=== PATIENT | female | born 2000 | race Caucasian/White ===

== ENCOUNTER 2018-05-30 21:59 | Emergency (ER) | payer OTHER ==
[~2018-05-30] VITALS: Ht 170.2 cm; Wt 84.1 kg
[2018-05-30 23:41] VITALS: BP 114/69
--- NOTE | 2018-05-31 02:52 | REP ---
Clinical: Right knee Trauma. Technique: AP, lateral, bilateral oblique and sunrise views. Findings: The osseous structures and joint spaces are intact and normal. There is no evidence for acute fracture or dislocation. No joint effusion is appreciated. Surrounding soft tissues are unremarkable. No subcutaneous emphysema or radiodense foreign body. Impression: Normal right knee examination. No acute fracture or dislocation. Electronically Signed by Tonio Woods MD 05/31/2018 02:43 A
== END 2018-05-30 23:42 | disposition home or self-care (01) ==
LOC: M ED 21:59
DX: M23.91 Unspecified internal derangement of right knee (principal)

== ENCOUNTER → 2018-06-22 | Outpatient (CLI) | payer OTHER ==
--- NOTE | 2018-06-22 13:40 | REP ---
MRI RIGHT KNEE: TECHNIQUE: Axial proton density fat saturation, sagittal proton density T2 STIR, water excitation, coronal proton density, proton density fat saturation. There appears to be a tear centrally of the posterior horn of the lateral meniscus. No definite tear is seen in the medial meniscus. The anterior cruciate ligament is torn from its femoral attachment. It is completely torn from its femoral attachment. The posterior cruciate ligament is intact. There is mild increased signal on T2-weighted images surrounding the medial collateral ligament consistent with a mild sprain or partial tear. The lateral collateral ligament is intact. The extensor mechanism is intact. No focal cartilaginous defect is seen. There is a moderate degree of bone bruising of the lateral femoral condyle tibial plateau with a more mild degree of bone bruising of the medial tibial plateau and femoral condyle. Moderate joint effusion. Suprapatellar plica is noted. The medial and lateral patellar retinacula are intact. IMPRESSION: Tear of the posterior horn of the lateral meniscus. There is a complete tear of the anterior cruciate ligament at its femoral attachment. There is a mild sprain or partial tear of the medial collateral ligament. Bone bruising distal femur and proximal tibia. Moderate to large joint effusion. Suprapatellar plica. Electronically Signed by Rad Valderrama MD 06/22/2018 03:16 P
== END ==
LOC: M RAD 10:23
PROVIDERS: ATTEND Orthopaedic Surgery Sports Medicine
DX: S83.411A Sprain of medial collateral ligament of right knee, initial encounter (principal); S83.281A Other tear of lateral meniscus, current injury, right knee, initial encounter; M25.461 Effusion, right knee; M67.51 Plica syndrome, right knee; X58.XXXA Exposure to other specified factors, initial encounter; Y92.9 Unspecified place or not applicable

== ENCOUNTER 2019-07-29 15:14 | Emergency (ER) | payer BC, OTHER ==
[~2019-07-29] VITALS: Ht 170.2 cm; Wt 78.4 kg
[2019-07-29] MEDS ORDERED: ALBUTEROL 90 MCG/ACT 8GM HFA INHALER INH ONE (16:30)
[2019-07-29 17:41] VITALS: BP 127/81
[2019-07-31] MEDS ORDERED: VENTAER INH (12:40)
== END 2019-07-29 17:42 | disposition home or self-care (01) ==
LOC: M ED 15:14
DX: J98.01 Acute bronchospasm (principal); F17.218 Nicotine dependence, cigarettes, with other nicotine-induced disorders

== ENCOUNTER 2021-10-16 10:55 | Emergency (ER) | payer BC, OTHER ==
[~2021-10-16] VITALS: Ht 170.2 cm; Wt 85.0 kg
[~2021-10-16 10:55] MED LIST: VENTAER INH
[2021-10-16] MEDS ORDERED: PRENMIS3 PO (11:12)
[2021-10-16] MEDS ORDERED: LEXA1TAB2 PO (11:12)
[2021-10-16 14:22] LABS: BASO # 0.1 10^3/uL (0.0-0.2); BASO % 0.4 % (0.0-1.0); EOS # 0.3 10^3/uL (0.0-0.5); EOS % 1.9 % (0.0-3.0); HEMATOCRIT 40.7 % (36.0-47.0); HEMOGLOBIN 13.8 g/dl (12.0-15.5); LYMPH % 27.9 % (24.0-44.0); MEAN CORPUSCULAR HEMOGLOBIN 28.9 pg (27.0-33.0); MEAN CORPUSCULAR HGB CONC 33.9 g/dl (32.0-36.5); MEAN CORPUSCULAR VOLUME 85.1 fl (80.0-96.0); MONO # 1.1 10^3/uL (0.0-0.8); MONO % 7.6 % (2.0-8.0); NEUTROPHILS # 8.9 10^3/uL (1.5-8.5); NEUTROPHILS % 61.7 % (36.0-66.0); PLATELET COUNT, AUTOMATED 252 10^3/uL (150-450); RED BLOOD COUNT 4.78 10^6/uL (4.00-5.40); WHITE BLOOD COUNT 14.4 10^3/uL (4.0-10.0)
[2021-10-16 16:34] VITALS: BP 109/58
== END 2021-10-16 18:00 | disposition left against medical advice (07) ==
LOC: M ED 10:55
DX: O20.0 Threatened abortion (principal); F32.A Depression, unspecified; F17.200 Nicotine dependence, unspecified, uncomplicated; Z3A.00 Weeks of gestation of pregnancy not specified

== ENCOUNTER → 2021-10-22 | Outpatient (CLI) | payer OTHER ==
[~2021-10-22] MED LIST changes: +LEXA1TAB2 PO; +PRENMIS3 PO
== END ==
LOC: M RAD 09:05
PROVIDERS: ATTEND Student in an Organized Health Care Education/Training Program
DX: O20.9 Hemorrhage in early pregnancy, unspecified (principal); Z3A.00 Weeks of gestation of pregnancy not specified

== ENCOUNTER → 2022-06-29 | Outpatient (CLI) | payer OTHER ==
[2022-06-29 13:32] LABS: HEMATOCRIT 38.4 % (36.0-47.0); HEMOGLOBIN 13.1 g/dl (12.0-15.5); MEAN CORPUSCULAR HEMOGLOBIN 29.2 pg (27.0-33.0); MEAN CORPUSCULAR HGB CONC 34.1 g/dl (32.0-36.5); MEAN CORPUSCULAR VOLUME 85.5 fl (80.0-96.0); PLATELET COUNT, AUTOMATED 233 10^3/uL (150-450); RED BLOOD COUNT 4.49 10^6/uL (4.00-5.40); WHITE BLOOD COUNT 15.1 10^3/uL (4.0-10.0)
[2022-06-29 14:11] LABS: HIV 1&2 SCREEN ATELLICA NEGATIVE (NEGATIVE)
[2022-06-29 14:20] LABS: HEPATITIS C VIRUS ABY INDEX < 0.0 INDEX (<0.8)
[2022-06-29 15:44] LABS: GC DNA AMPLIFICATION NEGATIVE (NEGATIVE)
== END ==
LOC: M PLALAB 09:29
PROVIDERS: ATTEND Advanced Practice Midwife
DX: Z36.9 Encounter for antenatal screening, unspecified (principal)

== ENCOUNTER 2022-08-24 17:30 | Emergency (ER) | payer OTHER ==
[~2022-08-24] VITALS: Ht 170.2 cm; Wt 85.6 kg
[2022-08-24 17:32] VITALS: BP 129/75; TEMP 98; O2SAT 99
== END 2022-08-24 17:49 | disposition admitted as inpatient to this hospital (09) ==
LOC: M ED 17:30
DX: Z53.21 Procedure and treatment not carried out due to patient leaving prior to being seen by health care provider (principal)

== ENCOUNTER → 2022-10-25 | Outpatient (CLI) | payer OTHER | LOC: M LAB 06:26 | PROVIDERS: ATTEND Obstetrics & Gynecology | DX: Z34.82 Encounter for supervision of other normal pregnancy, second trimester (principal) ==

== ENCOUNTER → 2022-12-03 | Outpatient (CLI) | payer OTHER ==
[~2022-12-03] MED LIST changes: +FAMO20TA5
== END ==
LOC: M RAD 07:11
PROVIDERS: ATTEND Specialist
DX: Z34.82 Encounter for supervision of other normal pregnancy, second trimester (principal)

== ENCOUNTER → 2022-12-06 | Outpatient (REF) | payer OTHER | LOC: M SFHCWAGY 17:35 | PROVIDERS: ATTEND Obstetrics & Gynecology | DX: Z34.93 Encounter for supervision of normal pregnancy, unspecified, third trimester (principal) ==

== ENCOUNTER 2023-01-04 07:41 | Inpatient (IN) | payer OTHER ==
[~2023-01-04] VITALS: Ht 170.2 cm; Wt 87.0 kg
[2023-01-04] VITALS (17 sets, daily range): BP systolic 113–155; BP diastolic 60–89; O2SAT 98
[~2023-01-04 07:41] MED LIST changes: -FAMO20TA5; +FAMO20TA5 PO
[2023-01-04] MEDS ORDERED: LACTATED RINGER'S 1000 ML IV STA (07:49)
[2023-01-04] MEDS ORDERED: LIDOCAINE 1% MDV 20ML VIAL INFIL PRN (07:50)
[2023-01-04] MEDS ORDERED: OXYTOCIN DRIP 30 UNITS in IV 1 EA IV PRN (07:50)
[2023-01-04] MEDS ORDERED: METHYLERGONOVINE MALEATE 0.2MG/ML 1ML VIAL IM PRN (07:50)
[2023-01-04] MEDS ORDERED: CARBOPROST TROMETHAMINE 250 MCG/ML AMP IM PRN (07:50)
[2023-01-04] MEDS ORDERED: TRANEXAMIC ACID INJection 1,000 MG in NS 100 ML IV PRN (07:50)
[2023-01-04] MEDS ORDERED: LR 1,000 ML IV SCH (07:50)
[2023-01-04] MEDS ORDERED: HOME MED LIST COMPLETE! XX SCH (08:10)
[2023-01-04 09:01] LABS: HEMATOCRIT 37.7 % (36.0-47.0); HEMOGLOBIN 13.2 g/dl (12.0-15.5); MEAN CORPUSCULAR HEMOGLOBIN 28.9 pg (27.0-33.0); MEAN CORPUSCULAR VOLUME 82.5 fl (80.0-96.0); PLATELET COUNT, AUTOMATED 219 10^3/uL (150-450); RED BLOOD COUNT 4.57 10^6/uL (4.00-5.40); WHITE BLOOD COUNT 18.3 10^3/uL (4.0-10.0)
[2023-01-04] MEDS: miSOPROStol 50MCG 1/2 TABLET SL SCH ×3 (09:55→18:05)
[2023-01-04] MEDS ORDERED: NICOTINE 14 MG/24 HR TRANSDERMAL TD ONE (12:00)
[2023-01-04] MEDS ORDERED: diphenhydrAMINE 50MG/ML VIAL IV PRN (19:35)
[2023-01-04] MEDS ORDERED: FENTANYL/ROPIVACAINE/NACL BAG 100 ML EPIDURAL SCH (19:35)
[2023-01-04] MEDS ORDERED: ePHEDrine SULFATE 25 MG/5 ML(5MG/ML) SYRINGE IVP PRN (19:35)
[2023-01-04] MEDS ORDERED: ONDANSETRON 4MG 2ML VIAL IV PRN (19:35)
[2023-01-04] MEDS ORDERED: NALOXONE INJ 0.4MG/1ML VIAL IV PRN (19:35)
[2023-01-04] MEDS ORDERED: LR 500 ML IV PRN (19:35)
[2023-01-04] MEDS ORDERED: EPIDURAL/PCA KEYS XX PRN (19:35)
[2023-01-04] MEDS: FAMOTIDINE 20 MG TAB PO SCH (22:02)
[2023-01-05] VITALS (30 sets, daily range): BP systolic 98–142; BP diastolic 53–81; O2SAT 97–98
[2023-01-05] MEDS ORDERED: OXYTOCIN DRIP 30 UNITS in IV 1 EA IV SCH ×2 (02:30→05:30)
[2023-01-05] MEDS ORDERED: ACETAMINOPHEN TAB 650MG DOSE (2X325MG) PO PRN (05:30)
[2023-01-05] MEDS ORDERED: ONDANSETRON 4MG 2ML VIAL IV PRN (05:30)
[2023-01-05] MEDS ORDERED: LR 1,000 ML IV SCH (05:30)
[2023-01-05] MEDS ORDERED: IBUPROFEN 600MG TAB PO PRN (05:30)
[2023-01-05] MEDS ORDERED: RHOGAM 300MCG (1500IU) INJ IM SCH (05:30)
[2023-01-05] MEDS ORDERED: FAMOTIDINE 20 MG TAB PO PRN (05:30)
[2023-01-05] MEDS ORDERED: ANUSOL HC CREAM 30GM TOP PRN (05:30)
[2023-01-05] MEDS ORDERED: DOCUSATE SODIUM 100MG CAPSULE PO PRN (05:30)
[2023-01-05] MEDS ORDERED: DIBUCAINE 1% OINTMENT 30GM TOP PRN (05:30)
[2023-01-05] MEDS: PRENATAL VITAMINS CHEWABLE TABLET PO SCH (08:32)
[2023-01-05] MEDS ORDERED: PRENATAL VITAMINS CHEWABLE TABLET PO SCH (09:00)
[2023-01-05] MEDS: IBUPROFEN 800 MG TAB PO PRN ×2 (11:30→19:36)
[2023-01-05] MEDS: ACETAMINOPHEN 500 MG TAB PO PRN (11:31)
[2023-01-05] MEDS: FAMOTIDINE 20 MG TAB PO SCH (19:37)
[2023-01-06] MEDS: ACETAMINOPHEN 500 MG TAB PO PRN ×2 (00:16→15:49)
[2023-01-06 06:00] VITALS: BP 123/70; O2SAT 97
[2023-01-06] MEDS: IBUPROFEN 800 MG TAB PO PRN ×2 (06:24→20:26)
[2023-01-06] MEDS: PRENATAL VITAMINS CHEWABLE TABLET PO SCH (07:49)
[2023-01-06 18:00] VITALS: BP 125/71; O2SAT 99
[2023-01-06] MEDS: FAMOTIDINE 20 MG TAB PO SCH (20:25)
[2023-01-07] MEDS: ACETAMINOPHEN 500 MG TAB PO PRN (03:01)
[2023-01-07 06:00] VITALS: BP 117/64; O2SAT 99
[2023-01-07] MEDS: PRENATAL VITAMINS CHEWABLE TABLET PO SCH (07:32)
[2023-01-07] MEDS ORDERED: MEASLES,MUMPS,RUBELLA VACCINE INJ (MMR-II) SC.IMMUN ONE (09:00)
== END 2023-01-07 12:40 | disposition home or self-care (01) | DRG 560 ==
LOC: M LDI 07:41 → M OBS 01-05 08:20
PROVIDERS: ADMIT Obstetrics & Gynecology; ATTEND Obstetrics & Gynecology
PROC: 3E0P7VZ Introduction of Hormone into Female Reproductive, Via Natural or Artificial Opening (ICD-10-PCS; 2023-01-04)
PROC: 3E033VJ Introduction of Other Hormone into Peripheral Vein, Percutaneous Approach (ICD-10-PCS; 2023-01-04)
PROC: 10E0XZZ Delivery of Products of Conception, External Approach (ICD-10-PCS; principal; 2023-01-05)
PROC: 0KQM0ZZ Repair Perineum Muscle, Open Approach (ICD-10-PCS; 2023-01-05)
DX: O48.0 Post-term pregnancy (principal); O70.1 Second degree perineal laceration during delivery; Z37.0 Single live birth; Z3A.41 41 weeks gestation of pregnancy

== ENCOUNTER 2023-02-07 22:25 | Emergency (ER) | payer MEDICAID, OTHER ==
[~2023-02-07] VITALS: Ht 170.2 cm; Wt 81.3 kg
[2023-02-08 00:42] LABS: LIPASE 50 U/L (12-53)
[2023-02-08 00:44] LABS: ALBUMIN 3.7 G/DL (3.2-5.2); ALKALINE PHOSPHATASE 115 U/L (46-116); ALT/SGPT 22 U/L (7.0-40); AST/SGOT 18 U/L (<34); BILIRUBIN,DIRECT < 0.1 MG/DL (<0.4); BILIRUBIN,TOTAL < 0.2 MG/DL (0.3-1.2); BLOOD UREA NITROGEN 12 MG/DL (9-23); CALCIUM LEVEL 9.1 MG/DL (8.5-10.1); CARBON DIOXIDE LEVEL 25 MMOL/L (20-31); CHLORIDE LEVEL 107 MMOL/L (98-107); CREATININE FOR GFR 0.68 MG/DL (0.55-1.30); GLOMERULAR FILTRATION RATE > 60.0 (>60); GLUCOSE, FASTING 108 MG/DL (60-100); POTASSIUM SERUM 3.7 MMOL/L (3.5-5.1); SODIUM LEVEL 141 MMOL/L (136-145); TOTAL PROTEIN 7.1 G/DL (5.7-8.2)
[2023-02-08 00:48] LABS: HCG, SERUM QUALITATIVE NEGATIVE (NEGATIVE)
[2023-02-08 00:51] LABS: BASO # 0.1 10^3/uL (0.0-0.2); BASO % 0.3 % (0.0-1.0); EOS # 0.5 10^3/uL (0.0-0.5); EOS % 3.3 % (0.0-3.0); HEMATOCRIT 37.6 % (36.0-47.0); HEMOGLOBIN 12.6 g/dl (12.0-15.5); LYMPH # 4.2 10^3/uL (1.5-5.0); LYMPH % 26.2 % (24.0-44.0); MEAN CORPUSCULAR HEMOGLOBIN 28.1 pg (27.0-33.0); MEAN CORPUSCULAR HGB CONC 33.5 g/dl (32.0-36.5); MEAN CORPUSCULAR VOLUME 83.7 fl (80.0-96.0); MONO # 1.1 10^3/uL (0.0-0.8); MONO % 6.6 % (2.0-8.0); NEUTROPHILS # 10.1 10^3/uL (1.5-8.5); PLATELET COUNT, AUTOMATED 247 10^3/uL (150-450); RED BLOOD COUNT 4.49 10^6/uL (4.00-5.40)
[2023-02-08] MEDS ORDERED: MORPHINE 4 MG/ML 1ML VIAL IV ONE ×2 (01:30→04:55)
[2023-02-08] MEDS ORDERED: NS 1,000 ML IV ONE (01:35)
[2023-02-08] MEDS ORDERED: ONDANSETRON 4MG 2ML VIAL IV ONE (01:35)
[2023-02-08] MEDS ORDERED: PANTOPRAZOLE 40MG VIAL IV ONE (01:40)
[2023-02-08] MEDS ORDERED: ISOVUE-370 76% 100ML VIAL As Ordered ONE (01:42)
[2023-02-08] MEDS: GASTROGRAFIN SOLUTION 30ML PO SCH ×2 (02:14→02:30)
[2023-02-08] MEDS ORDERED: OMEP40CA4 PO (07:26)
[2023-02-08] MEDS ORDERED: SUCR1TA PO (07:26)
[2023-02-08 07:31] VITALS: BP 145/73; TEMP 97; O2SAT 97
== END 2023-02-08 07:40 | disposition home or self-care (01) ==
LOC: M ED 22:25
DX: R10.13 Epigastric pain (principal); Z79.899 Other long term (current) drug therapy
CPT/HCPCS: 74177; 76705; 80048; 80076; 81001; 83690; 84703; 85025; 87086; 93041; 96361; 96374; 96375; 99285; C9113; J2405; Q9963; Q9967